=== PATIENT | female | born 2000 | race Caucasian/White ===

== ENCOUNTER 2019-05-25 12:42 | Outpatient (CLI) | payer OTHER, MEDICAID ==
[2019-05-25 14:20] LABS: RUPTURE FETAL MEMBRANES NEGATIVE (NEGATIVE)
== END 2019-05-25 18:08 | disposition home or self-care (01) ==
LOC: OBT 12:42 → L-D 12:42 → OBT 18:08
DX: O62.9 Abnormality of forces of labor, unspecified (principal); Z3A.39 39 weeks gestation of pregnancy
CPT/HCPCS: 76818; 84112

== ENCOUNTER 2019-05-26 09:46 | Inpatient (IN) | payer OTHER ==
[2019-05-26] MEDS ORDERED: LIDOCAINE 1% (MPF) 30 ML INJ INJ (10:00)
[2019-05-26] MEDS ORDERED: METHYLERGONOVINE 0.2 MG INJ IM (10:00)
[2019-05-26] MEDS ORDERED: OXYTOCIN 30 UNITS/LR 500 ML IV (10:00)
[2019-05-26] MEDS ORDERED: BUTORPHANOL 2 MG INJ IV (10:00)
[2019-05-26] MEDS ORDERED: CARBOPROST 250 MCG INJ IM (10:00)
[2019-05-26] MEDS ORDERED: MISOPROSTOL 200 MCG TAB PR (10:00)
[2019-05-26] MEDS ORDERED: OXYCODONE/ASPIRIN (4.88/325) TAB PO (10:00)
[2019-05-26] MEDS ORDERED: IBUPROFEN 600 MG TAB PO (10:00)
[2019-05-26] MEDS: LACTATED RINGER'S 1,000 ML IV ×2 (10:31→18:23)
[2019-05-26 10:47] LABS: ADD MAN DIFF? NO
[2019-05-26 10:49] LABS: WHITE BLOOD COUNT 8.2 10^3/ul (4.8-10.8)
[2019-05-26 10:49] LABS: BASOPHILS % 0.5 % (0.0-2.0); EOSINOPHILS # 0.1 10^3/ul (0.0-0.5); EOSINOPHILS % 1.6 % (0.0-7.0); HEMATOCRIT 38.8 % (37.0-47.0); HEMOGLOBIN 12.9 g/dl (12.0-16.0); LYMPHOCYTES # 2.1 10^3/ul (0.8-2.9); MEAN CORPUSCULAR HGB CONC 33.2 g/dl (32.0-37.0); MEAN CORPUSCULAR VOLUME 84.2 fl (72.0-104.0); MEAN PLATELET VOLUME 10.9 fl (7.4-10.4); MONOCYTE # 0.6 10^3/ul (0.3-0.9); MONOCYTES % 7.8 % (0.0-13.0); NEUTROPHIL # 5.2 10^3/ul (1.6-7.5); NEUTROPHILS % 63.6 % (30.0-74.0); PLATELET COUNT 268 10^3/UL (140-415); RED BLOOD COUNT 4.61 10^6/ul (4.20-5.40); RED CELL DISTRIBUTION WIDTH 13.7 % (11.5-14.5)
[2019-05-26 11:10] LABS: INR 0.82; PROTIME 11.4 Sec (11.9-14.9); PT RATIO 0.9
[2019-05-26 11:11] LABS: PARTIAL THROMBOPLASTIN TIME 27.7 Sec (23.0-35.0)
[2019-05-26] MEDS ORDERED: MINERAL OIL LIGHT 10 ML VIAL TOP (12:00)
[2019-05-26 12:33] LABS: HEPATITIS B SURFACE ANTIGEN NEGATIVE (NEGATIVE)
[2019-05-26] MEDS: MISOPROSTOL 50 MCG CAPSULE PO ×3 (14:24→22:25)
[2019-05-26 20:39] LABS: RAPID PLASMA REAGIN NONREACTIVE (NR)
[2019-05-27] MEDS: MISOPROSTOL 50 MCG CAPSULE PO ×3 (02:28→09:00)
[2019-05-27] MEDS: LACTATED RINGER'S 1,000 ML IV ×4 (02:35→16:56)
[2019-05-27] MEDS ORDERED: DIPHENHYDRAMINE 50 MG INJ IV (04:00)
[2019-05-27] MEDS ORDERED: ONDANSETRON 4 MG INJ IV (04:00)
[2019-05-27] MEDS ORDERED: NALOXONE (0.4 MG/ML) INJ IV (04:00)
[2019-05-27] MEDS: FENTAnyl 2MCG/ML-ROPIV 0.2% 100 ML BAG EPI (10:21)
[2019-05-27] MEDS: AMPICILLIN 2 GM/NS (PMX) 100 ML IV (14:07)
[2019-05-27] MEDS: GENTAMICIN 120 MG/NS (PMX) 100 ML IVPB (16:56)
[2019-05-27] MEDS: AMPICILLIN 1 GM/NS (PMX) 50 ML IV (17:57)
[2019-05-27] MEDS: OXYTOCIN 30 UNITS/LR 500 ML IV ×2 (18:49→19:02)
[2019-05-27] MEDS: ACETAMINOPHEN 500 MG TAB PO (19:02)
[2019-05-27] MEDS: KETOROLAC 30 MG INJ IV (19:02)
[2019-05-27] MEDS ORDERED: MISOPROSTOL 200 MCG TAB PR (22:00)
[2019-05-27] MEDS ORDERED: CARBOPROST 250 MCG INJ IM (22:00)
[2019-05-27] MEDS ORDERED: ZOLPIDEM 5 MG TAB PO (22:00)
[2019-05-27] MEDS ORDERED: DIBUCAINE 1% 30 GM OINT TOP (22:00)
[2019-05-27] MEDS ORDERED: HYDROCODONE/APAP (5/325) TAB PO ×2 (22:00)
[2019-05-27] MEDS ORDERED: OXYTOCIN 30 UNITS/LR 500 ML IV (22:00)
[2019-05-27] MEDS ORDERED: METHYLERGONOVINE 0.2 MG INJ IM (22:00)
[2019-05-27] MEDS: MAGNESIUM HYDROXIDE 30ML CUP PO (22:22)
[2019-05-27] MEDS: SENNA/DOCUSATE NA (8.6MG/50MG) TAB PO (22:22)
[2019-05-27] MEDS: WITCH HAZEL/GLYCERIN PAD PR (22:23)
[2019-05-27] MEDS: LANOLIN HPA 1 PKT TOP (22:23)
[2019-05-27] MEDS: LACTATED RINGER'S 1,000 ML IV* (23:05)
[2019-05-27] MEDS: AMPICILLIN/SULB 3 GM/NS (PMX) 100 ML IVPB (23:41)
[2019-05-27] MEDS: IBUPROFEN 600 MG TAB PO (23:48)
[2019-05-28] MEDS: BENZOCAINE 20% 56 ML SPRAY TOP (00:57)
[2019-05-28 05:12] LABS: ADD MAN DIFF? NO
[2019-05-28 05:14] LABS: WHITE BLOOD COUNT 14.5 10^3/ul (4.8-10.8)
[2019-05-28 05:14] LABS: BASOPHILS % 0.2 % (0.0-2.0); EOSINOPHILS % 0.3 % (0.0-7.0); HEMOGLOBIN 9.9 g/dl (12.0-16.0); LYMPHOCYTES # 1.6 10^3/ul (0.8-2.9); LYMPHOCYTES % 10.9 % (18.0-55.0); MEAN CORPUSCULAR HEMOGLOBIN 28.5 pg (29.0-33.0); MEAN CORPUSCULAR HGB CONC 34.1 g/dl (32.0-37.0); MEAN CORPUSCULAR VOLUME 83.6 fl (72.0-104.0); MEAN PLATELET VOLUME 11.3 fl (7.4-10.4); MONOCYTE # 1.1 10^3/ul (0.3-0.9); MONOCYTES % 7.8 % (0.0-13.0); NEUTROPHIL # 11.7 10^3/ul (1.6-7.5); NEUTROPHILS % 80.3 % (30.0-74.0); PLATELET COUNT 221 10^3/UL (140-415); RED BLOOD COUNT 3.47 10^6/ul (4.20-5.40); RED CELL DISTRIBUTION WIDTH 13.9 % (11.5-14.5)
[2019-05-28] MEDS: LACTATED RINGER'S 1,000 ML IV* ×3 (05:46→21:46)
[2019-05-28] MEDS: IBUPROFEN 600 MG TAB PO ×4 (05:48→23:43)
[2019-05-28] MEDS: AMPICILLIN/SULB 3 GM/NS (PMX) 100 ML IVPB ×4 (05:48→23:43)
[2019-05-28] MEDS: SENNA/DOCUSATE NA (8.6MG/50MG) TAB PO ×2 (09:58→21:00)
[2019-05-28] MEDS: MAGNESIUM HYDROXIDE 30ML CUP PO ×2 (09:58→21:00)
[2019-05-29 04:57] LABS: ADD MAN DIFF? NO
[2019-05-29 05:02] LABS: BASOPHILS % 0.4 % (0.0-2.0); EOSINOPHILS # 0.3 10^3/ul (0.0-0.5); EOSINOPHILS % 2.4 % (0.0-7.0); HEMATOCRIT 28.7 % (37.0-47.0); HEMOGLOBIN 9.7 g/dl (12.0-16.0); LYMPHOCYTES # 2.3 10^3/ul (0.8-2.9); LYMPHOCYTES % 21.5 % (18.0-55.0); MEAN CORPUSCULAR HEMOGLOBIN 28.9 pg (29.0-33.0); MEAN CORPUSCULAR HGB CONC 33.8 g/dl (32.0-37.0); MEAN CORPUSCULAR VOLUME 85.4 fl (72.0-104.0); MEAN PLATELET VOLUME 10.9 fl (7.4-10.4); MONOCYTE # 0.7 10^3/ul (0.3-0.9); MONOCYTES % 6.8 % (0.0-13.0); NEUTROPHIL # 7.3 10^3/ul (1.6-7.5); NEUTROPHILS % 68.2 % (30.0-74.0); PLATELET COUNT 217 10^3/UL (140-415); RED BLOOD COUNT 3.36 10^6/ul (4.20-5.40); RED CELL DISTRIBUTION WIDTH 13.9 % (11.5-14.5)
[2019-05-29 05:02] LABS: WHITE BLOOD COUNT 10.7 10^3/ul (4.8-10.8)
[2019-05-29] MEDS: AMPICILLIN/SULB 3 GM/NS (PMX) 100 ML IVPB (05:33)
[2019-05-29] MEDS: IBUPROFEN 600 MG TAB PO (05:33)
[2019-05-29] MEDS: LACTATED RINGER'S 1,000 ML IV* (05:46)
[2019-05-29] MEDS: MAGNESIUM HYDROXIDE 30ML CUP PO (09:00)
[2019-05-29] MEDS: SENNA/DOCUSATE NA (8.6MG/50MG) TAB PO (09:00)
[2019-05-29] MEDS: DIPHTH/TET/ACEL PERTUSS (ADULT) 0.5 ML VIAL IM* (09:01)
[2019-05-29] MEDS: VARICELLA VACCINE LIVE/PF 1,350 UNIT/0.5 ML ML SC* (09:03)
[2019-05-29] MEDS: MEASLES,MUMPS,RUBELLA VACCINE INJ SC* (09:03)
== END 2019-05-29 12:40 | disposition home or self-care (01) | DRG 807 ==
LOC: L-D 09:46 → MS1 05-27 21:20
PROVIDERS: Obstetrics & Gynecology
PROC: 10E0XZZ Delivery of Products of Conception, External Approach (ICD-10-PCS; principal; 2019-05-27)
PROC: 0KQM0ZZ Repair Perineum Muscle, Open Approach (ICD-10-PCS; 2019-05-27)
PROC: 3E033VJ Introduction of Other Hormone into Peripheral Vein, Percutaneous Approach (ICD-10-PCS; 2019-05-27)
DX: O70.1 Second degree perineal laceration during delivery (principal); Z37.0 Single live birth; O69.81X0 Labor and delivery complicated by cord around neck, without compression, not applicable or unspecified; Z3A.39 39 weeks gestation of pregnancy
CPT/HCPCS: 62322; 76815; 82962; 85025; 85610; 85730; 86592; 86850; 86900; 86901; 87340; 90715; 90716; 99464